=== PATIENT | male | born 1985 | race Caucasian/White ===

== ENCOUNTER 2017-03-25 14:39 | Day surgery (SDC) | payer OTHER ==
[~2017-03-25] VITALS: Ht 167.6 cm; Wt 53.2 kg
[2017-03-25] MEDS ORDERED: LACTATED RINGERS 1,000 ML IV SCH (15:15)
[2017-03-25] MEDS ORDERED: HYDR-3237 PO (15:17)
[2017-03-25] MEDS ORDERED: ALBU0.63 NEB (15:17)
[2017-03-25 15:36] VITALS: BP 122/77
[2017-03-25] MEDS ORDERED: BUPIVACAINE/PF 0.5% ONE (16:38)
[2017-03-25] MEDS ORDERED: ONDANSETRON 2MG/ML, 2ML ONE (16:42)
[2017-03-25] MEDS ORDERED: CEFAZOLIN 1,000 MG ONE (16:42)
[2017-03-25] MEDS ORDERED: MIDAZOLAM 1 MG/ML, 2ML ONE (16:42)
[2017-03-25] MEDS ORDERED: DEXAMETHASONE 4 MG/ML, 1ML ONE (16:42)
[2017-03-25] MEDS ORDERED: PROPOFOL 10 MG/ML, 20ML ONE (16:42)
[2017-03-25] MEDS ORDERED: FENTANYL PF 250 MCG/5ML ONE (16:42)
[2017-03-25] MEDS ORDERED: LIDOCAINE-MPF 2% ,5ML ONE (16:43)
[2017-03-25] MEDS ORDERED: BUPIVACAINE/PF-EPI 0.5% 1:200K INFIL ONE (17:11)
[2017-03-25] MEDS ORDERED: LORazepam 2 MG/ML, 1ML IVPush PRN (17:30)
[2017-03-25] MEDS ORDERED: DIAZEPAM 5 MG/ML, 2ML IVPush PRN (17:30)
[2017-03-25] MEDS ORDERED: MIDAZOLAM 1 MG/ML, 2ML IV PRN (17:30)
[2017-03-25] MEDS ORDERED: ALBUTEROL/IPRATROPIUM 2.5MG/0.5MG, 3 ML NPPB PRN (17:30)
[2017-03-25] MEDS ORDERED: FENTANYL PF 100 MCG/2ML IV PRN (17:30)
[2017-03-25] MEDS ORDERED: LABETALOL 5MG/ML, 20ML IV PRN (17:30)
[2017-03-25] MEDS ORDERED: PROMETHAZINE 25 MG/ML, 1ML IV PRN (17:30)
[2017-03-25] MEDS ORDERED: ONDANSETRON 2MG/ML, 2ML IVPush PRN (17:30)
[2017-03-25] MEDS ORDERED: MEPERIDINE/PF 25MG/0.5ML IVPush PRN (17:30)
[2017-03-25] MEDS ORDERED: HYDROmorphone 1 MG/ML, 1ML IV PRN (17:30)
[2017-03-25] MEDS ORDERED: OXYcodone 5 MG/5 ML ORAL.SOL UDC PO PRN (17:30)
[2017-03-25] MEDS ORDERED: ACETAMINOPHEN 325 MG TABLET PO PRN (17:30)
[2017-03-25] MEDS ORDERED: OXYcodone 5 MG/5 ML ORAL.SOL UDC ONE (17:51)
== END 2017-03-25 18:40 ==
LOC: OR 14:39
PROVIDERS: ATTEND Orthopaedic Surgery
DX: S51.811A Laceration without foreign body of right forearm, initial encounter (principal); J45.909 Unspecified asthma, uncomplicated; F17.210 Nicotine dependence, cigarettes, uncomplicated; X58.XXXA Exposure to other specified factors, initial encounter; Y93.89 Activity, other specified; Y92.89 Other specified places as the place of occurrence of the external cause; Y99.8 Other external cause status
CPT/HCPCS: 13121; J0690; J1100; J2250; J2405; J2704; J3010; J3490; J7120